=== PATIENT | female | born 1990 | race Native Hawaiian/Other Pacific Islander ===

== ENCOUNTER 2016-11-17 11:51 | Emergency (ER) | payer OTHER ==
[~2016-11-17] VITALS: Ht 162.6 cm; Wt 97.5 kg
[2016-11-17 13:25] VITALS: BP 130/80; TEMP 98
== END 2016-11-17 13:25 | disposition home or self-care (01) ==
LOC: ED 11:51
DX: S00.93XA Contusion of unspecified part of head, initial encounter (principal); K05.6 Periodontal disease, unspecified; V43.62XA Car passenger injured in collision with other type car in traffic accident, initial encounter
CPT/HCPCS: 99283